=== PATIENT | female | born 1995 | race Asian ===

== ENCOUNTER 2022-05-29 01:12 | Emergency (ER) | payer OTHER ==
[~2022-05-29] VITALS: Ht 165.1 cm; Wt 61.4 kg
[2022-05-29 01:13] VITALS: BP 113/75
[2022-05-29] MEDS ORDERED: PRENTAB7 PO (01:19)
== END 2022-05-29 03:28 | disposition home or self-care (01) ==
LOC: M ED 01:12
DX: J02.9 Acute pharyngitis, unspecified (principal); B34.9 Viral infection, unspecified; Z79.899 Other long term (current) drug therapy